=== PATIENT | male | born 1945 | race Caucasian/White ===

== ENCOUNTER 2018-11-01 13:04 | Emergency (ER) | payer OTHER ==
[~2018-11-01] VITALS: Ht 160 cm; Wt 76.2 kg
[2018-11-01] MEDS ORDERED: POTASSIUM99 MG (13:51)
[2018-11-01] MEDS ORDERED: FOSINOPRIL SODI40 MG PO (13:52)
[2018-11-01] MEDS ORDERED: AMLODIPINE BESYL5 MG PO (13:52)
[2018-11-01] MEDS ORDERED: TIROSINT75 MCG PO (13:53)
[2018-11-01] MEDS ORDERED: TAMS0.4C PO (13:53)
== END 2018-11-01 16:07 | disposition home or self-care (01) ==
LOC: ER 13:04
DX: R33.8 Other retention of urine (principal)